=== PATIENT | male | born 1995 | race Caucasian/White ===

== ENCOUNTER 2017-04-06 14:23 | Emergency (ER) | payer OTHER ==
[~2017-04-06] VITALS: Ht 170.2 cm; Wt 67.0 kg
[2017-04-06 14:27] VITALS: Ht 170.2 cm; Wt 67.0 kg
[2017-04-06] MEDS ORDERED: SODIUM CHLORIDE 0.9% 1000ML 1,000 ML IV ONE (14:46)
[2017-04-06] MEDS ORDERED: SODIUM CHLORIDE 0.9% 1000ML 1,000 ML IV STA (14:46)
--- NOTE | 2017-04-06 15:08 | EMERGENCY ROOM VISIT NOTE ---
History Report prepared by Charles: Ben Hassan Under the Supervision of: Dr. Josh Alvarenga M.D. First contact with patient: 14:32 Chief Complaint: ILLNESS Stated Complaint: FATIGUE,WEAKNESS IN LEGS/ARMS,HENDRICKSON,PALPS History of Present Illness The patient is a 21 year old male who presents to the Emergency Room with complaints of persistent generalized illness beginning about a month ago. His symptoms include fatigue, intermittent bilateral leg and hand numbness, bilateral leg weakness, occasional heart palpitations, dry cough, intermittent shortness of breath, "burning" pain in the top of his head, and lightheadedness. He states that his legs become numb when he crosses them or allows them to hand down over a chair. The patient was seen by [facility] for GERD- like symptoms last week. He states that he has not been sleeping well over the past four months, but has been sleeping well over the past week. He states that he recently had the flu. The patient denies any fevers, neck pain, nausea, vomiting, diarrhea, urinary symptoms, black or bloody stool, joint aches, rashes , or ear pain. He denies any recent falls or injury. He denies any recent tick bites. The patient has not been out of the country in over five months. He does not feel dehydrated. He is a former smoker. The patient was seen for his symptoms two days ago and was given decongestants. Source of History: patient Onset: about a month ago Position: other (generalized) Quality: other (illness) Timing: other (persistent) Associated Symptoms: + cough (dry), + chest pain (GERD-like), + SOB ( intermittent), + fatigue, + weakness (bilateral legs), + numbness (intermittent bilateral hands and legs), No fevers, No neck pain, No nausea, No vomiting, No melena, No hematochezia, No diarrhea, No urinary symptoms, No rash Note: The patient complains of occasional heart palpitations, "burning" pain in the top of his head, and lightheadedness. He denies any joint aches, or ear pain. Review of Systems See HPI for pertinent positives & negatives. A total of 10 systems reviewed and were otherwise negative. Past Medical & Surgical Medical Problems: (1) No Known Active Medical Problems Old medical records were reviewed. Nurse's notes were reviewed and I agree with. Family History No pertinent family history stated. Social History Smoking Status: Never Smoker Alcohol Use: occasionally Drug Use: none Marital Status: single Occupation Status: [employer] student Current/Historical Medications No Active Prescriptions or Reported Meds Allergies Coded Allergies: Lactose Intolerance (GI) (Unverified Allergy, Unknown, GI ISSUES, 04/06/17) Physical Exam Vital Signs Date Time Temp Pulse Resp B/P (MAP) Pulse Ox O2 Delivery O2 Flow Rate FiO2 04/06/17 16:49 37.0 75 16 112/77 98 04/06/17 15:58 75 16 112/77 98 Room Air 04/06/17 15:22 79 20 119/79 98 Room Air 04/06/17 14:27 37.0 97 18 124/82 99 Room Air Physical Exam General: Non-ill appearing young male in no acute distress. HEENT: Normal cephalic atraumatic. Pupils are equal round and reactive to light. Extraocular movements are intact. Oropharynx is pink with moist mucous membranes. No swelling of the mouth lips or tongue. Neck: Supple with a midline trachea. No meningeal signs or stiffness, no JVD or bruits. No Stridor. Chest: Clear to auscultation bilaterally. No wheezes or rhonchi. No increased work of breathing. Heart: regular rate and rhythm. Abdomen: Soft nontender, nondistended without rebound guarding or rigidity. Extremities: No cyanosis clubbing or edema. No calf tenderness or assymetry Spine/Back. Non tender to palpation. No CVA tenderness Skin: Good turgor without rashes. Neurologic exam: Cranial nerves two through 12 are intact. Motor and sensation are intact and symmetrical throughout. Brisk intact reflexes in the upper and lower extremities. Medical Decision & Procedures ER Provider Diagnostic Interpretation: X-ray results as stated below per interpretation by me and the radiologist: CHEST ONE VIEW PORTABLE FINDINGS: Cardiomediastinal silhouette normal. Lungs and pleural spaces clear. Osseous structures normal. Upper abdomen normal. IMPRESSION: 1. No acute cardiopulmonary disease. Electronically signed by: Garcia Hoang M.D. Laboratory Results 04/06/17 15:10 Red Blood Count 5.03, Mean Corpuscular Volume 88.5, Mean Corpuscular Hemoglobin 30.6, Mean Corpuscular Hemoglobin Concent 34.6, Mean Platelet Volume 10.2, Neutrophils (%) (Auto) 72.0, Lymphocytes (%) (Auto) 20.8, Monocytes (%) (Auto) 5.3, Eosinophils (%) (Auto) 1.0, Basophils (%) (Auto) 0.6, Neutrophils # (Auto) 4.89, Lymphocytes # (Auto) 1.41, Monocytes # (Auto) 0.36, Eosinophils # (Auto) 0.07, Basophils # (Auto) 0.04 04/06/17 15:10 Test 04/06/17 15:10 04/06/17 15:17 White Blood Count 6.79 K/uL (4.8-10.8) Red Blood Count 5.03 M/uL (4.7-6.1) Hemoglobin 15.4 g/dL (14.0-18.0) Hematocrit 44.5 % (42-52) Mean Corpuscular Volume 88.5 fL (80-100) Mean Corpuscular Hemoglobin 30.6 pg (25-34) Mean Corpuscular Hemoglobin Concent 34.6 g/dl (32-36) Platelet Count 295 K/uL (130-400) Mean Platelet Volume 10.2 fL (7.4-10.4) Neutrophils (%) (Auto) 72.0 % Lymphocytes (%) (Auto) 20.8 % Monocytes (%) (Auto) 5.3 % Eosinophils (%) (Auto) 1.0 % Basophils (%) (Auto) 0.6 % Neutrophils # (Auto) 4.89 K/uL (1.4-6.5) Lymphocytes # (Auto) 1.41 K/uL (1.2-3.4) Monocytes # (Auto) 0.36 K/uL (0.11-0.59) Eosinophils # (Auto) 0.07 K/uL (0-0.5) Basophils # (Auto) 0.04 K/uL (0-0.2) RDW Standard Deviation 40.5 fL (36.4-46.3) RDW Coefficient of Variation 12.7 % (11.5-14.5) Immature Granulocyte % (Auto) 0.3 % Immature Granulocyte # (Auto) 0.02 K/uL (0.00-0.02) Anion Gap 7.0 mmol/L (3-11) Est Creatinine Clear Calc Drug Dose 100.2 ml/min Estimated GFR () 111.4 Estimated GFR (Non- 96.1 BUN/Creatinine Ratio 5.5 (10-20) Calcium Level 9.8 mg/dl (8.5-10.1) Total Bilirubin 1.0 mg/dl (0.2-1) Direct Bilirubin 0.2 mg/dl (0-0.2) Aspartate Amino Transf (AST/SGOT) 16 U/L (15-37) Alanine Aminotransferase (ALT/SGPT) 18 U/L (12-78) Alkaline Phosphatase 70 U/L (45-117) Total Protein 8.5 gm/dl (6.4-8.2) Albumin 4.4 gm/dl (3.4-5.0) Lipase 182 U/L (73-393) Thyroid Stimulating Hormone (TSH) 0.792 uIu/ml (0.300-4.500) Lyme Disease IgG Antibody NEG (NEG) Lyme Disease IgM Antibody NEG (NEG) Bedside Troponin I 0.040 ng/ml (0-0.045) Laboratory studies as stated above per my review. Medications Administered Medications (Trade) Dose Ordered Sig/Marion Route Start Time Stop Time Status Last Admin Dose Admin Sodium Chloride 1,000 ml @ 999 mls/hr Q1H1M STAT IV 04/06/17 14:46 04/06/17 15:46 DC 04/06/17 15:58 999 MLS/HR ECG Indication: other (dizziness) Rate (beats per minute): 79 Rhythm: normal sinus, sinus with SA Findings: no acute ischemic change Comparison ECG Date: no prior available ED Course 1433: Past medical records reviewed. The patient was evaluated in room C12B, and a complete history and physical examination were performed. 1446: Ordered Sodium Chloride 1000 ml @ 200 mls/hr IV, Sodium Chloride 1000 ml @ 999 mls/hr IV. 1548: I reassessed the patient. He is resting comfortably. 1615: Upon reevaluation, the patient is resting. I discussed the results and treatment plan with him. He states that he feels somewhat anxious and wonders if his symptoms could be related to anxiety. The patient denies any suicidal thoughts. He verbalized agreement of the treatment plan. The patient was discharged home. Medical Decision Differentials include, but are not limited to; viral illness, vertigo, arrhythmia, Lyme disease, thyroid disease, and electrolyte or metabolic abnormality. This patient comes in as described above. He says he's been feeling imminently dizzy and also has some other vague symptoms. He looks completely well on exam and is nontoxic and non-lethargic. He has nothing to suggest meningitis or acute neurologic processes. He has brisk reflexes and therefore Guillain-Andrews is highly unlikely. IV access was established EKG was obtained. Chest x-ray and multiple blood testing was obtained . he was hydrated with 1 L IV normal saline bolus. He was reassessed frequently. He has remained stable and feels well. EKG does not suggest acute coronary syndrome or arrhythmia. Chest x-ray does not suggest infection or cardiac or pulmonary disease. He has no significant electrolyte or metabolic abnormalities. He is not anemic. His Lyme titer was negative. He asked give this could be anxiety related it certainly could be at this point, I do not find any evidence of infection or other significant acute problem that would need treatment today but I encouraged him drink plenty of fluids and return if worsening of symptoms, fever or chills, any new problems or concerns. Medication Reconcilliation Current Medication List: was personally reviewed by me Blood Pressure Screening Patient's blood pressure: Normal blood pressure Blood pressure disposition: Did not require urgent referral Impression Primary Impression: Dizziness Scribe Attestation The scribe's documentation has been prepared under my direction and personally reviewed by me in its entirety. I confirm that the note above accurately reflects all work, treatment, procedures, and medical decision making performed by me. Departure Information Dispostion Home / Self-Care Prescriptions No Active Prescriptions or Reported Meds Forms HOME CARE DOCUMENTATION FORM, IMPORTANT VISIT INFORMATION, WORK / SCHOOL INSTRUCTIONS Patient Instructions My [facility] Additional Instructions Rest. Drink plenty of fluids. Return if: Worsening symptoms, fever or chills, shortness of breath, any new problems or concerns. [facility]-up with the student [facility] this week for recheck if not better
--- NOTE | 2017-04-06 15:12 | DIAGNOSTIC IMAGING REPORT ---
CHEST ONE VIEW PORTABLE CLINICAL HISTORY: 21 years-old Male presenting with CHEST PAIN. TECHNIQUE: Portable upright AP view of the chest was obtained. COMPARISON: None. FINDINGS: Cardiomediastinal silhouette normal. Lungs and pleural spaces clear. Osseous structures normal. Upper abdomen normal. IMPRESSION: 1. No acute cardiopulmonary disease. Electronically signed by: Garcia Hoang M.D. 04/06/2017 3:11 PM Dictated Date/Time: 04/06/2017 3:10 PM
[2017-04-06 15:23] LABS: BASO % 0.6 %; BASO ABS # 0.04 K/uL (0-0.2); COMPLETE YES; HEMATOCRIT 44.5 % (42-52); IG% 0.3 %; LYMPH % 20.8 %; LYMPH ABS # 1.41 K/uL (1.2-3.4); MEAN CELL VOLUME 88.5 fL (80-100); MEAN CORPUSCULAR HEMOGLOBIN 30.6 pg (25-34); MEAN CORPUSCULAR HGB CONC 34.6 g/dl (32-36); MEAN PLATELET VOLUME 10.2 fL (7.4-10.4); MONO % 5.3 %; PLATELET COUNT 295 K/uL (130-400); RED BLOOD COUNT 5.03 M/uL (4.7-6.1); WHITE BLOOD COUNT 6.79 K/uL (4.8-10.8)
[2017-04-06 15:38] LABS: BUN/CREATININE RATIO 5.5 (10-20); CALCIUM 9.8 mg/dl (8.5-10.1); CREATININE 1.1 mg/dl (0.60-1.40); POTASSIUM 3.9 mmol/L (3.5-5.1)
[2017-04-06 15:49] LABS: THYROID STIMULATING HORMONE 0.792 uIu/ml (0.300-4.500)
[2017-04-06 16:49] VITALS: BP 112/77; PULSE 75; TEMP 37; O2SAT 98
[2017-04-06 18:22] LABS: LYME DISEASE AB IGG NEG (NEG); LYME DISEASE AB IGM NEG (NEG)
== END 2017-04-06 16:23 | disposition home or self-care (01) ==
LOC: C.EDB 14:26 → C.EDC 16:23
DX: R42 Dizziness and giddiness (principal); R06.02 Shortness of breath; Z87.891 Personal history of nicotine dependence

== ENCOUNTER 2017-11-12 18:47 | Emergency (ER) | payer OTHER ==
[~2017-11-12] VITALS: Ht 175.3 cm; Wt 71.5 kg
[2017-11-12 18:54] VITALS: TEMP 36.8; Ht 175.3 cm; Wt 71.5 kg
[2017-11-12] MEDS ORDERED: KETOROLAC TROMETHAMINE 30 MG/ML VIAL IV STA (20:02)
[2017-11-12] MEDS ORDERED: MAGNESIUM SULFATE 1GM / D5W 1 GM BAG IV STA (20:02)
[2017-11-12] MEDS ORDERED: SODIUM CHLORIDE 0.9% 1000ML 1,000 ML IV STA (20:02)
[2017-11-12] MEDS ORDERED: PROCHLORPERAZINE 5 MG/ML 2 ML VIAL IV STA (20:02)
[2017-11-12] MEDS ORDERED: DiphenhydrAMINE HCL 50 MG/ML VIAL IV STA (20:02)
[2017-11-12] MEDS ORDERED: ASPI325T4 PO (20:18)
[2017-11-12] MEDS ORDERED: CHOL400T PO (20:18)
[2017-11-12] MEDS ORDERED: CYAN100020 PO (20:18)
--- NOTE | 2017-11-12 20:18 | EMERGENCY ROOM VISIT NOTE ---
History Report prepared by Charles: Power Noyola Under the Supervision of: Dr. Naga Mathur M.D. First contact with patient: 19:52 Chief Complaint: DIZZY Stated Complaint: DIZZINESS, HEADACHE, PALIPTATIONS,CHEST DISCOMFORT Nursing Triage Summary: Patient reports dizziness, fatigue, chest discomfort, and headache. History of Present Illness The patient is a 22 year old male who presents to the Emergency Room with complaints of intermittent, vague, dizziness beginning a few months ago. The patient states he has been evaluated in the ED twice for similar symptoms over the past few months. He reports he has not been given a diagnosis yet. The patient notes he has not followed up with [facility] like he was instructed to. He states he is experiencing chest pain, a headache, and his dizziness. The patient reports it is the worst headache he has ever had. He notes his symptoms disappear when he goes to sleep and begin again when he wakes up. The patient states he has started cutting down on his caffeine consumption. He denies fevers and drug use. Source of History: patient Onset: a few months ago Quality: other (vague dizziness) Timing: intermittent Modifying Factors (Relieving): other (sleeping) Associated Symptoms: + headache, + chest pain, No fevers Note: Pt started decreasing caffeine intake Review of Systems See HPI for pertinent positives & negatives. A total of 10 systems reviewed and were otherwise negative. Past Medical & Surgical Medical Problems: (1) No Known Active Medical Problems Family History Diabetes mellitus Heart disease Social History Smoking Status: Current Every Day Smoker Alcohol Use: occasionally Drug Use: none Marital Status: single Occupation Status: [employer] student Current/Historical Medications Scheduled Cholecalciferol (Vitamin D3), 1 TAB PO DAILY Cyanocobalamin (Vitamin B12), 1 TAB PO DAILY Scheduled PRN Aspirin (Aspirin), 2 TABS PO DIRECTED PRN for Pain Allergies Coded Allergies: No Known Allergies (Unverified , 11/12/17) Physical Exam Vital Signs Date Time Temp Pulse Resp B/P (MAP) Pulse Ox O2 Delivery O2 Flow Rate FiO2 11/12/17 22:41 84 16 116/66 100 11/12/17 22:30 84 18 114/66 100 11/12/17 21:30 83 11/12/17 20:33 132 24 130/70 100 Room Air 11/12/17 20:11 Room Air 11/12/17 20:11 Room Air 11/12/17 18:54 36.8 80 18 115/71 99 Room Air Physical Exam GENERAL: Awake, alert, well-appearing, in no acute distress HENT: Normocephalic, atraumatic. Oropharynx unremarkable. EYES: Normal conjunctiva. Sclera non-icteric. NECK: Supple. No nuchal rigidity. FROM. No JVD. RESPIRATORY: Clear to auscultation. CARDIAC: Regular rate, normal rhythm. Extremities warm and well perfused. Pulses equal. ABDOMEN: Soft, non-distended. No tenderness to palpation. No rebound or guarding. No masses. RECTAL: Deferred. MUSCULOSKELETAL: Chest examination reveals no tenderness. The back is symmetrical on inspection without obvious abnormality. There is no CVA tenderness to palpation. No joint edema. LOWER EXTREMITIES: Calves are equal size bilaterally and non-tender. No edema. No discoloration. NEURO: Normal sensorium. No sensory or motor deficits noted. SKIN: No rash or jaundice noted. Medical Decision & Procedures ER Provider Diagnostic Interpretation: Radiology results as stated below per my review and radiologist interpretation: CT OF THE HEAD WITHOUT CONTRAST CLINICAL HISTORY: Headache. Dizziness. COMPARISON STUDY: No previous studies for comparison. CT DOSE: 729.78 mGycm TECHNIQUE: Helical axial images of the head were obtained without IV contrast. Automated exposure control was utilized for the study. A dose lowering technique was utilized adhering to the principles of ALARA. FINDINGS: No acute intracranial hemorrhage, midline shift or mass effect is present. Brain findings normal. Ventricular system is normal. The basilar cisterns are patent. There are no extra-axial collections. Umana-white differentiation is preserved. There are no findings to suggest acute dural sinus thrombosis or acute territorial infarct. There are no significant calvarial abnormalities. Visualized portions of the sinuses and the mastoid air cells are clear. IMPRESSION: No acute intracranial findings. Electronically signed by: Abraham Hawk M.D. 11/12/2017 8:36 PM Dictated Date/Time: 11/12/2017 8:33 PM Laboratory Results 11/12/17 20:02 Red Blood Count 4.76, Mean Corpuscular Volume 86.8, Mean Corpuscular Hemoglobin 30.0, Mean Corpuscular Hemoglobin Concent 34.6, Mean Platelet Volume 9.8, Neutrophils (%) (Auto) 72.7, Lymphocytes (%) (Auto) 21.0, Monocytes (%) (Auto) 4.2, Eosinophils (%) (Auto) 1.5, Basophils (%) (Auto) 0.4, Neutrophils # (Auto) 6.69, Lymphocytes # (Auto) 1.93, Monocytes # (Auto) 0.39, Eosinophils # (Auto) 0.14, Basophils # (Auto) 0.04 11/12/17 20:02 Test 11/12/17 20:02 11/12/17 21:25 White Blood Count 9.21 K/uL (4.8-10.8) Red Blood Count 4.76 M/uL (4.7-6.1) Hemoglobin 14.3 g/dL (14.0-18.0) Hematocrit 41.3 % (42-52) Mean Corpuscular Volume 86.8 fL (80-100) Mean Corpuscular Hemoglobin 30.0 pg (25-34) Mean Corpuscular Hemoglobin Concent 34.6 g/dl (32-36) Platelet Count 274 K/uL (130-400) Mean Platelet Volume 9.8 fL (7.4-10.4) Neutrophils (%) (Auto) 72.7 % Lymphocytes (%) (Auto) 21.0 % Monocytes (%) (Auto) 4.2 % Eosinophils (%) (Auto) 1.5 % Basophils (%) (Auto) 0.4 % Neutrophils # (Auto) 6.69 K/uL (1.4-6.5) Lymphocytes # (Auto) 1.93 K/uL (1.2-3.4) Monocytes # (Auto) 0.39 K/uL (0.11-0.59) Eosinophils # (Auto) 0.14 K/uL (0-0.5) Basophils # (Auto) 0.04 K/uL (0-0.2) RDW Standard Deviation 38.9 fL (36.4-46.3) RDW Coefficient of Variation 12.1 % (11.5-14.5) Immature Granulocyte % (Auto) 0.2 % Immature Granulocyte # (Auto) 0.02 K/uL (0.00-0.02) Anion Gap 6.0 mmol/L (3-11) Est Creatinine Clear Calc Drug Dose 100.8 ml/min Estimated GFR () 103.8 Estimated GFR (Non- 89.5 BUN/Creatinine Ratio 11.0 (10-20) Calcium Level 9.6 mg/dl (8.5-10.1) Total Bilirubin 0.7 mg/dl (0.2-1) Direct Bilirubin 0.2 mg/dl (0-0.2) Aspartate Amino Transf (AST/SGOT) 16 U/L (15-37) Alanine Aminotransferase (ALT/SGPT) 22 U/L (12-78) Alkaline Phosphatase 71 U/L (45-117) Total Creatine Kinase 158 U/L (39-308) Troponin I < 0.015 ng/ml (0-0.045) Total Protein 8.6 gm/dl (6.4-8.2) Albumin 4.5 gm/dl (3.4-5.0) Thyroid Stimulating Hormone (TSH) 1.410 uIu/ml (0.300-4.500) Lyme Disease IgG Antibody NEG (NEG) Lyme Disease IgM Antibody NEG (NEG) Monoscreen NEG (NEG) Urine Color YELLOW Urine Appearance CLEAR (CLEAR) Urine pH 6.5 (4.5-7.5) Urine Specific [place]el 1.007 (1.000-1.030) Urine Protein NEG (NEG) Urine Glucose (UA) NEG (NEG) Urine Ketones NEG (NEG) Urine Occult Blood NEG (NEG) Urine Nitrite NEG (NEG) Urine Bilirubin NEG (NEG) Urine Urobilinogen NEG (NEG) Urine Leukocyte Esterase NEG (NEG) Labs reviewed by ED physician. Medications Administered Medications (Trade) Dose Ordered Sig/Marion Route Start Time Stop Time Status Last Admin Dose Admin Sodium Chloride 1,000 ml @ 999 mls/hr Q1H1M STAT IV 11/12/17 20:02 11/12/17 21:02 DC 11/12/17 20:05 999 MLS/HR Ketorolac Tromethamine (Toradol Inj) 30 mg NOW STAT IV 11/12/17 20:02 11/12/17 20:05 DC 11/12/17 20:26 30 MG Prochlorperazine Edisylate (Compazine Inj) 5 mg NOW STAT IV 11/12/17 20:02 11/12/17 20:05 DC 11/12/17 20:26 5 MG Diphenhydramine HCl (Benadryl Inj) 50 mg NOW STAT IV 11/12/17 20:02 11/12/17 20:05 DC 11/12/17 20:27 50 MG Magnesium Sulfate (Magnesium Sulfate 1gm / D5W) 1 gm NOW STAT IV 11/12/17 20:02 11/12/17 20:05 DC 11/12/17 20:27 1 GM Dexamethasone Sodium Phosphate 10 mg/Syringe 2.5 ml @ 1 mls/min NOW STAT IV 11/12/17 21:56 11/12/17 21:58 DC 11/12/17 22:30 1 MLS/MIN ECG Per My Interpretation Indication: other (dizziness) Rate (beats per minute): 87 Rhythm: normal sinus Findings: other (No ST elevation or depression) ED Course 175: Past medical records reviewed. The patient was evaluated in room C10. A complete history and physical examination was performed. 2001: Ordered Magnesium Sulfate 1gm IV, Benadryl 50mg IV, Compazine 5mg IV, Toradol 30mg IV, Sodium Chloride 1000 ml @ 999 mls/hr IV 4: Upon reexamination the patient is resting. I told him this is probably a result of anxiety. He notes he does not want to start anxiety medication at this time. I discussed results and treatment plan with the patient. He verbalizes agreement and understanding. The patient is ready for discharge when he receives his medication. 2155: Ordered Dexamethasone Sodium Phosphate 10mg/Syringe 2.5ml @ 1 mls/min Medical Decision Differential diagnosis: Etiologies such as benign positional vertigo, dehydration, hypovolemia, anemia, tumor, infection, hypoglycemia, electrolyte abnormalities, cardiac sources, intracerebral event, toxicologic, neurologic, as well as others were entertained. This is a 22-year-old male who presents to the emergency department complaining of multiple complaints including leg as well as chest pain. I discussed with the fact that the patient needs follow-up with [facility] if he is continuing to have these issues. I also noted that the last physician that this patient's on the emergency department felt that he was suffering from anxiety. The patient does not agree with this assessment however he has a normal EKG normal CAT scan of the head normal CBC normal renal profile normal liver profile. He has no evidence of meningitis or encephalitis on examination. I do feel he is well enough to be safely discharged home for follow-up with his primary care physician. Patient was in agreement with the treatment plan. Medication Reconcilliation Current Medication List: was personally reviewed by me Blood Pressure Screening Patient's blood pressure: Normal blood pressure Blood pressure disposition: Did not require urgent referral Impression Primary Impression: Dizziness Additional Impression: Headache Scribe Attestation The scribe's documentation has been prepared under my direction and personally reviewed by me in its entirety. I confirm that the note above accurately reflects all work, treatment, procedures, and medical decision making performed by me. Departure Information Dispostion Home / Self-Care Referrals [facility] Forms HOME CARE DOCUMENTATION FORM, IMPORTANT VISIT INFORMATION, School Instructions, Work Instructions Patient Instructions Headache Pain, My [facility] Additional Instructions Follow up with [facility] You have been examined and treated today on an emergency basis only. This is not a substitute for, or an effort to provide, complete comprehensive medical care. It is impossible to recognize and treat all injuries or illnesses in a single emergency department visit. It is therefore important that you follow up closely with [facility]. Call as soon as possible for an appointment. Thank you for your time and consideration. I look forward to speaking with you again soon. Please don't hesitate to call us if you have any questions. Problem Qualifiers Additional Impression: Headache Headache type: unspecified Headache chronicity pattern: unspecified pattern Intractability: not intractable Qualified Codes: R51 - Headache
[2017-11-12 20:19] LABS: BASO % 0.4 %; BASO ABS # 0.04 K/uL (0-0.2); EOS % 1.5 %; EOS ABS # 0.14 K/uL (0-0.5); HEMATOCRIT 41.3 % (42-52); HEMOGLOBIN 14.3 g/dL (14.0-18.0); IG# 0.02 K/uL (0.00-0.02); LYMPH ABS # 1.93 K/uL (1.2-3.4); MEAN CELL VOLUME 86.8 fL (80-100); MEAN CORPUSCULAR HGB CONC 34.6 g/dl (32-36); MEAN PLATELET VOLUME 9.8 fL (7.4-10.4); MONO % 4.2 %; MONO ABS # 0.39 K/uL (0.11-0.59); NEUT % 72.7 %; NEUT ABS # 6.69 K/uL (1.4-6.5); PLATELET COUNT 274 K/uL (130-400); RED CELL DISTRIBUTION WIDTH CV 12.1 % (11.5-14.5); RED CELL DISTRIBUTION WIDTH SD 38.9 fL (36.4-46.3); WHITE BLOOD COUNT 9.21 K/uL (4.8-10.8)
[2017-11-12 20:36] LABS: ALBUMIN 4.5 gm/dl (3.4-5.0); ALT/SGPT 22 U/L (12-78); AST/SGOT 16 U/L (15-37); BLOOD UREA NITROGEN 13 mg/dl (7-18); CALCIUM 9.6 mg/dl (8.5-10.1); CARBON DIOXIDE 27 mmol/L (21-32); CREATININE 1.16 mg/dl (0.60-1.40); GLUCOSE 92 mg/dl (70-99); POTASSIUM 3.8 mmol/L (3.5-5.1); SODIUM 137 mmol/L (136-145)
--- NOTE | 2017-11-12 20:37 | DIAGNOSTIC IMAGING REPORT ---
CT OF THE HEAD WITHOUT CONTRAST CLINICAL HISTORY: Headache. Dizziness. COMPARISON STUDY: No previous studies for comparison. CT DOSE: 729.78 mGycm TECHNIQUE: Helical axial images of the head were obtained without IV contrast. Automated exposure control was utilized for the study. A dose lowering technique was utilized adhering to the principles of ALARA. FINDINGS: No acute intracranial hemorrhage, midline shift or mass effect is present. Brain findings normal. Ventricular system is normal. The basilar cisterns are patent. There are no extra-axial collections. Umana-white differentiation is preserved. There are no findings to suggest acute dural sinus thrombosis or acute territorial infarct. There are no significant calvarial abnormalities. Visualized portions of the sinuses and the mastoid air cells are clear. IMPRESSION: No acute intracranial findings. Electronically signed by: Abraham Hawk M.D. 11/12/2017 8:36 PM Dictated Date/Time: 11/12/2017 8:33 PM
[2017-11-12 20:47] LABS: ALKALINE PHOSPHATASE 71 U/L (45-117); TOTAL PROTEIN 8.6 gm/dl (6.4-8.2)
[2017-11-12 20:48] LABS: MONOSPOT NEG (NEG)
[2017-11-12] MEDS ORDERED: DEXAMETHASONE INJ 10 MG in SYRINGE 0 ML IV STA (21:56)
[2017-11-12 22:41] VITALS: BP 116/66; PULSE 84; O2SAT 100
[2017-11-14 14:51] LABS: EBV EARLY ANTIGEN AB < 9.00 U/ML
== END 2017-11-12 22:40 | disposition home or self-care (01) ==
LOC: C.EDB 18:48 → C.EDC 22:40
DX: R42 Dizziness and giddiness (principal); R51 Headache; F17.210 Nicotine dependence, cigarettes, uncomplicated